=== PATIENT | male | born 1990 | race Caucasian/White ===

== ENCOUNTER 2021-02-20 15:08 | Emergency (ER) | payer MEDICARE ==
[2021-02-20 16:00] VITALS: BP 129/73; PULSE 97; RESP 20; TEMP 98.4
[2021-02-20] MEDS ORDERED: LORazepam 1 MG TAB PO STA (18:53)
--- NOTE | 2021-02-20 21:11 | ED ---
Psych HPI - General Chief Complaint: Psychiatric Symptoms Stated Complaint: Mental Health Eval Time Seen by Provider: 02/20/21 17:37 Source: family Mode of arrival: wheelchair - History of Present Illness Initial Comments: 30 year-old male patient presents to the emergency department today for evaluation of increased anxiety. States his anxiety has been so bad it is causing him to have suicidal thoughts and yesterday he planned to step in front of a train until his stopped him. States that his thoughts have not been right. States he is seeing things that are not there. Doing things that do not make sense. He states that he was on medications for his symptoms but they did not work. He stopped taking them. He recently moved to the area. Does not have a counselor or psychiatrist here. He denies drugs or alcohol. Does smoke cigarettes. - Related Data Previous Rx's Medication Instructions Recorded LORazepam [Ativan] 1 mg PO TID 3 Days #9 tab 02/21/21 Allergies Allergy/AdvReac Type Severity Reaction Status Date / Time meperidine [From Demerol] Allergy Unknown Verified 02/20/21 18:11 Review of Systems ROS Statement: Those systems with pertinent positive or pertinent negative responses have been documented in the HPI. ROS Other: All systems not noted in ROS Statement are negative. Past Medical History Past Medical History: Hyperlipidemia, Hypertension, Seizure Disorder History of Any Multi-Drug Resistant Organisms: None Reported Past Surgical History: Hernia Repair Past Psychological History: Anxiety, Bipolar, Depression Smoking Status: Current every day smoker Past Alcohol Use History: None Reported Past Drug Use History: None Reported General Exam Limitations: no limitations General appearance: alert, in no apparent distress, other (This is a well- developed, well-nourished adult male patient in no acute distress.) Eye exam: Present: normal appearance, PERRL, EOMI. Absent: scleral icterus, conjunctival injection, periorbital swelling ENT exam: Present: normal exam, normal oropharynx, mucous membranes moist Respiratory exam: Present: normal lung sounds bilaterally. Absent: respiratory distress, wheezes, rales, rhonchi, stridor Cardiovascular Exam: Present: regular rate, normal rhythm, normal heart sounds. Absent: systolic murmur, diastolic murmur, rubs, gallop, clicks GI/Abdominal exam: Present: soft, normal bowel sounds. Absent: distended, tenderness, guarding, rebound, rigid Neurological exam: Present: alert, oriented X3, CN II-XII intact Psychiatric exam: Present: normal affect, normal mood, suicidal ideation. Absent: homicidal ideation Skin exam: Present: warm, dry, intact, normal color. Absent: rash Course Vital Signs 02/20/21 15:55 Temperature 98.4 F Pulse Rate 97 Respiratory 20 Rate Blood Pressure 129/73 O2 Sat by Pulse 98 Oximetry Medical Decision Making - Medical Decision Making 30-year-old male patient presented to the emergency department for evaluation of increased anxiety and suicidal ideation. Physical examination is unremarkable. He is cleared medically and evaluated by emergency psychiatric services. He was evaluated and they were able to develop a safety plan. Be discharged follow-up with outpatient mental health services. He is given a short prescription for anxiety medication. Instructed to follow-up with the primary care physician for recheck in 1-2 days. Return parameters were discussed in detail. He verbalizes understanding and agrees with this plan. My attending is Dr. Bella. Disposition Clinical Impression: Anxiety, Adjustment reaction Disposition: HOME SELF-CARE Condition: Good Instructions (If sedation given, give patient instructions): Stress (ED), Mood Disorders (ED), Anxiety (ED) Additional Instructions: Follow-up with her primary care physician for recheck in 1-2 days. Return for any new, worsening, or concerning symptoms. Prescriptions: LORazepam [Ativan] 1 mg PO TID 3 Days #9 tab Is patient prescribed a controlled substance at d/c from ED?: Yes When asked, does pt state using other controlled substances?: No If prescribed controlled substance>3 days was MAPS reviewed?: Prescribed <3 Days Referrals: None,Stated [Primary Care Provider] - 1-2 days Time of Disposition: 01:08
[2021-02-20] MEDS ORDERED: LORazepam 2 MG/ML INJ IM STA (21:49)
== END 2021-02-21 01:22 | disposition home or self-care (01) ==
LOC: EC 15:08
DX: F41.9 Anxiety disorder, unspecified (principal); F43.20 Adjustment disorder, unspecified; E78.5 Hyperlipidemia, unspecified; I10 Essential (primary) hypertension; G40.909 Epilepsy, unspecified, not intractable, without status epilepticus; F17.210 Nicotine dependence, cigarettes, uncomplicated; F31.9 Bipolar disorder, unspecified
CPT/HCPCS: 82075; 99284; 96372; J2060

== ENCOUNTER 2021-02-24 11:41 | Emergency (ER) | payer MEDICARE ==
[2021-02-24 11:56] LABS: Glucose,Whole Blood 65 mg/dL (75-99)
[2021-02-24] MEDS ORDERED: DEXTROSE 50% SYRINGE 50 ML IVP STA (12:03)
[2021-02-24] MEDS ORDERED: SODIUM CHLORIDE 0.9% 1,000 ML IV STA (12:07)
[2021-02-24] MEDS ORDERED: LORazepam 2 MG/ML INJ IV STA (12:09)
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
[2021-02-24 12:34] LABS: Basophils # (A) 0.1 k/uL (0-0.2); Basophils % (A) 1 %; Eosinophils # (A) 0.7 k/uL (0-0.7); Eosinophils % (A) 7 %; HCT 52.7 % (39.0-53.0); HGB 16.9 gm/dL (13.0-17.5); Lymphocytes # (A) 3.2 k/uL (1.0-4.8); Lymphocytes % (A) 31 %; MCH 30.9 pg (25.0-35.0); MCHC 32.1 g/dL (31.0-37.0); MCV 96.5 fL (80.0-100.0); Mean Platelet Volume 8.6; Monocytes # (A) 0.8 k/uL (0-1.0); Monocytes % (A) 8 %; Neutrophils # (A) 5.4 k/uL (1.3-7.7); Neutrophils % (A) 52 %; Platelet Count 214 k/uL (150-450); RBC 5.46 m/uL (4.30-5.90); RDW 13.2 % (11.5-15.5); WBC 10.4 k/uL (3.8-10.6)
[2021-02-24] MEDS ORDERED: ASPIRIN 81 MG PO STA (12:39)
[2021-02-24] MEDS ORDERED: diphenhydrAMINE 50 MG/ML 1 ML VIAL IVP STA (12:39)
[2021-02-24 12:42] LABS: INR 0.9 (<1.2)
--- NOTE | 2021-02-24 12:42 | XR ---
EXAMINATION TYPE: XR chest 1V DATE OF EXAM: 02/24/2021 COMPARISON: NONE HISTORY: 30-year-old male with chest pain TECHNIQUE: Single frontal view of the chest is obtained. FINDINGS: Heart normal size. Aorta and pulmonary vasculature within normal limits. No consolidation or pleural effusion. Minimal strandy atelectasis left base. IMPRESSION: No acute process seen.
[2021-02-24 12:43] LABS: Partial Thromboplastin Time 22.1 sec (22.0-30.0); Prothrombin Time 9.5 sec (9.0-12.0)
[2021-02-24 12:44] LABS: ALT 37 U/L (4-49); AST 40 U/L (17-59); African American GFR (CKD) >90 (>60 ml/min/1.73 sqM); Albumin 4.4 g/dL (3.5-5.0); Alkaline Phosphatase 73 U/L (38-126); Amylase 68 U/L (30-110); Anion Gap 8 mmol/L; Blood Urea Nitrogen 7 mg/dL (9-20); Carbon Dioxide 24 mmol/L (22-30); Chloride 107 mmol/L (98-107); Glucose 57 mg/dL (74-99); Lipase 239 U/L (23-300); Magnesium 2.2 mg/dL (1.6-2.3); Non-African American GFR(CKD) >90 (>60 ml/min/1.73 sqM); Sodium 139 mmol/L (137-145); Total Bilirubin 0.3 mg/dL (0.2-1.3); Total Protein 7.6 g/dL (6.3-8.2)
[2021-02-24 12:46] VITALS: TEMP 97.6
[2021-02-24] MEDS ORDERED: NICOTINE 21MG/24HR PATCH TRANSDERM STA (12:58)
[2021-02-24 13:32] LABS: Glucose,Whole Blood 85 mg/dL (75-99)
[2021-02-24] MEDS ORDERED: MORPHINE SULFATE 4 MG/ML SYRINGE IVP STA (13:56)
[2021-02-24 15:22] LABS: Appearance,Urine Clear (Clear); Bilirubin,Urine Negative (Negative); Blood,Urine Negative (Negative); Color,Urine Yellow; Glucose,Urine (UA) 3+ (Negative); Ketones,Urine Negative (Negative); Leukocyte Esterase,Urine Negative (Negative); Nitrite,Urine Negative (Negative); Protein,Urine Negative (Negative); Specific Gravity,Urine 1.015 (1.001-1.035); Urobilinogen,Urine <2.0 mg/dL (<2.0)
[2021-02-24 15:37] LABS: Amphetamine Screen,Urine Not Detected (NotDetected); Barbiturate Screen,Urine Not Detected (NotDetected); Benzodiazepines Screen,Urine Detected (NotDetected); Cocaine Screen,Urine Not Detected (NotDetected); Methadone Screen, Urine Not Detected (NotDetected); Opiate Screen,Urine Detected (NotDetected); Oxycodone Screen, Urine Not Detected (NotDetected); Phencyclidine Screen,Urine Not Detected (NotDetected); Tricyclic Antidepressant,Urine Detected (NotDetected); Urn Cannabinoid Scrn Not Detected (NotDetected)
[2021-02-24 16:35] VITALS: BP 101/58; PULSE 79; RESP 18
== END 2021-02-24 16:30 | disposition home or self-care (01) ==
LOC: EC 11:41
DX: F41.9 Anxiety disorder, unspecified (principal); E16.2 Hypoglycemia, unspecified; I10 Essential (primary) hypertension; E78.5 Hyperlipidemia, unspecified; F31.9 Bipolar disorder, unspecified; F17.200 Nicotine dependence, unspecified, uncomplicated
CPT/HCPCS: 99285; 96374; 96375 ×2; 96361; 36415; 93005; 80053; 82150; 83690; 83735; 84484; 85025; 85610; 85730; 81003; 80306; 71045; S4990; J2060; J2270; J1200

== ENCOUNTER 2021-02-26 19:48 | Emergency (ER) | payer MEDICARE ==
[2021-02-26 19:55] VITALS: RESP 16; TEMP 98
[2021-02-26] MEDS ORDERED: LORazepam 2 MG/ML INJ IM STA (20:39)
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
[2021-02-26 21:19] LABS: Amphetamine Screen,Urine Not Detected (NotDetected); Barbiturate Screen,Urine Not Detected (NotDetected); Benzodiazepines Screen,Urine Detected (NotDetected); Cocaine Screen,Urine Not Detected (NotDetected); Methadone Screen, Urine Not Detected (NotDetected); Opiate Screen,Urine Not Detected (NotDetected); Oxycodone Screen, Urine Not Detected (NotDetected); Phencyclidine Screen,Urine Not Detected (NotDetected); Tricyclic Antidepressant,Urine Not Detected (NotDetected); Urn Cannabinoid Scrn Not Detected (NotDetected)
[2021-02-27 01:06] VITALS: BP 132/72; PULSE 72
== END 2021-02-27 01:26 | disposition home or self-care (01) ==
LOC: EC 19:48
DX: F43.20 Adjustment disorder, unspecified (principal); F41.9 Anxiety disorder, unspecified; E78.5 Hyperlipidemia, unspecified; I10 Essential (primary) hypertension; G40.909 Epilepsy, unspecified, not intractable, without status epilepticus; F31.9 Bipolar disorder, unspecified; F17.200 Nicotine dependence, unspecified, uncomplicated
CPT/HCPCS: 82075; 93005; 80306; 99285; 96372; J2060

== ENCOUNTER 2021-02-27 15:59 | Emergency (ER) | payer MEDICARE ==
[2021-02-27 16:27] VITALS: TEMP 97.4
[2021-02-27] MEDS ORDERED: ALPRAZolam 1 MG TAB PO STA (17:18)
--- NOTE | 2021-02-27 17:27 | ED ---
General Adult HPI - General Chief complaint: Chest Pain Stated complaint: chest pain Time Seen by Provider: 02/27/21 16:25 Source: patient, EMS Mode of arrival: EMS - History of Present Illness Initial comments: Dictation was produced using [employer] dictation software. please excuse any grammatical, word or spelling errors. Chief Complaint: 30-year-old male here for anxiety History of Present Illness: Patient 30-year-old male who has past medical history of anxiety. Takes Xanax. He states he ran out today. States that he feels anxious. Patient given by EMS. Told EMS that he is also having some sharp chest pain to his left anterior chest. No other complaints. Patient denies drug use. He has no other complaints The ROS documented in this emergency department record has been reviewed and confirmed by me. Those systems with pertinent positive or negative responses have been documented in the HPI. All other systems are other negative and/or noncontributory. PHYSICAL EXAM: General Impression: Alert and oriented x3, not in acute distress, resting comfortably at the bedside, disheveled HEENT: Normocephalic atraumatic, extra-ocular movements intact, pupils equal and reactive to light bilaterally, mucous membranes moist. Cardiovascular: Heart regular rate and rhythm Chest: Able to complete full sentences, no retractions, no tachypnea Abdomen: abdomen soft, non-tender, non-distended, no organomegaly Musculoskeletal: Pulses present and equal in all extremities, no peripheral edema Motor: no focal deficits noted Neurological: CN II-XII grossly intact, no focal motor or sensory deficits noted Skin: Intact with no visualized rashes Psych: Normal affect and mood ED course: 30-year-old male with chief complaint of anxiety. Clinical presentation consistent with anxiety reaction. He does not appear to be anxious. Vital signs are stable. Patient's chest pain is atypical. EKG is unremarkable. Patient given oral anxiolytic and discharge. EKG interpretation: Ventricular rate 100, normal sinus rhythm,. Interval 154, QRS 92, QTc 451. No ME prolongation, no QTC prolongation, no ST or T-wave changes noted. Overall, this EKG is unremarkable - Related Data Previous Rx's Medication Instructions Recorded LORazepam [Ativan] 1 mg PO TID 3 Days #9 tab 02/21/21 Allergies Allergy/AdvReac Type Severity Reaction Status Date / Time meperidine [From Demerol] Allergy Unknown Verified 02/27/21 16:08 Review of Systems ROS Statement: Those systems with pertinent positive or pertinent negative responses have been documented in the HPI. ROS Other: All systems not noted in ROS Statement are negative. Past Medical History Past Medical History: Hyperlipidemia, Hypertension, Seizure Disorder History of Any Multi-Drug Resistant Organisms: None Reported Past Surgical History: Hernia Repair Past Psychological History: Anxiety, Bipolar, Depression Smoking Status: Current every day smoker Past Alcohol Use History: None Reported Past Drug Use History: None Reported Course Vital Signs 02/27/21 16:01 Temperature 97.4 F L Pulse Rate 84 Respiratory 24 Rate Blood Pressure 127/91 O2 Sat by Pulse 95 Oximetry Disposition Clinical Impression: Anxiety Disposition: HOME SELF-CARE Condition: Good Instructions (If sedation given, give patient instructions): Anxiety (ED) Is patient prescribed a controlled substance at d/c from ED?: No Referrals: None,Stated [Primary Care Provider] - 1-2 days
[2021-02-27 17:28] VITALS: BP 132/76; PULSE 86; RESP 18
== END 2021-02-27 17:51 | disposition home or self-care (01) ==
LOC: EC 15:59
DX: F41.9 Anxiety disorder, unspecified (principal); I10 Essential (primary) hypertension; E78.5 Hyperlipidemia, unspecified; F17.200 Nicotine dependence, unspecified, uncomplicated; Z79.899 Other long term (current) drug therapy
CPT/HCPCS: 93005; 99285